=== PATIENT | female | born 1945 | race American Indian/Alaskan Native ===

== ENCOUNTER 2018-04-15 06:06 | Inpatient (IN) | payer OTHER, MEDICARE ==
[2018-04-15] MEDS ORDERED: Thrombin Topical 5,000 Int Units Spray Kit ONE (07:10)
[2018-04-15] MEDS ORDERED: Absorbable Gelatin Sponge Size 100 ONE (07:10)
--- NOTE | 2018-04-15 07:12 | CP.PCM.HP ---
History of Present Illness - History of Present Illness History of Present Illness: PCP:Dr Rivera Orthopdist: Dr Morgan Chief Complaint: Left Total knee replacement HPI: 72 years old female with hx of HTN, Anxiety GERD and right hip osteoarthritis, comes with Months of Intolerable pain to the left knee. She had been taking analgesics with now less response to the conservative management. . She has come for an elective left total knee Replacement.to be done by Dr Morgan today. She reefers Gas and on and off gas pains. No SOB, Chest Pain, Diarrhea, Dysuria. She was cleared for surgery by Dr Rivera. PMH; KWABENA; HTN; GERD; Anxiety disorder; Overactive Bladder; Prediabetes; Obesity ; Vitamin D Deficiency; Diverticulitis PSH: Arthroscopic surgery for right rotator cuff 2009; left Arthroscopic Knee surgery 2013 Colonoscopy; Tubal ligation; tonsillectomy; Right Total hip replacement SH: No illegal drug use; No Alcohol; No smoking ; live with family FH:Sister with breast cancer Mother with HTN and stroke Father with prostate cancer Allergies: NKDA Medicine: Reviewed Present on Admission - Present on Admission Any Indicators Present on Admission: No History of DVT/PE: No History of Uncontrolled Diabetes: No Urinary Catheter: No Decubitus Ulcer Present: No Review of Systems - Constitutional Constitutional: absent: Chills, Fever, Headache, Lethargy - EENT Eyes: Requires Corrective Lenses. absent: Itchy Eyes, Photophobia, Sees Flashes Ears: absent: Decreased Hearing, Ear Discharge, Ear Pain Nose/Mouth/Throat: Nasal Congestion. absent: Epistaxis, Nasal Discharge, Sinus Pain, Sinus Pressure - Cardiovascular Cardiovascular: Edema. absent: Chest Pain, Dyspnea - Respiratory Respiratory: absent: Cough, Dyspnea, Chest Congestion - Gastrointestinal Gastrointestinal: absent: Abdominal Pain, Constipation, Diarrhea, Nausea, Vomiting - Genitourinary Genitourinary: Urinary Frequency. absent: Dysuria, Flank Pain - Musculoskeletal Musculoskeletal: Arthralgias. absent: Back Pain, Deformity, Joint Swelling - Integumentary Integumentary: absent: Pruritus, Rash, Skin Ulcer, Sores, Striae - Neurological Neurological: absent: Confusion, Numbness, Focal Weakness, Weakness - Psychiatric Psychiatric: Anxiety. absent: Depression, Panic Attacks - Endocrine Endocrine: absent: Palpitations, Polydipsia, Polyphagia, Polyuria Past Patient History - Past Medical History & Family History Past Medical History?: Yes - Past Social History Smoking Status: Never Smoked Chewing Tobacco Use: No Cigar Use: No Drugs: Denies Home Situation {Lives}: With Family - CARDIAC Hx Hypertension: Yes - PULMONARY Hx Respiratory Disorders: Yes Hx Sleep Apnea: Yes - NEUROLOGICAL Hx Neurological Disorder: Yes Other/Comment: NUMBNESS.TINGLING - HEENT Hx HEENT Problems: No - RENAL Hx Chronic Kidney Disease: No - ENDOCRINE/METABOLIC Hx Endocrine Disorders: No - HEMATOLOGICAL/ONCOLOGICAL Hx Blood Disorders: No - INTEGUMENTARY Hx Dermatological Problems: No - MUSCULOSKELETAL/RHEUMATOLOGICAL Hx Arthritis: Yes - GASTROINTESTINAL Hx Gastrointestinal Disorders: Yes Hx Diverticulitis: Yes - GENITOURINARY/GYNECOLOGICAL Hx Genitourinary Disorders: No - PSYCHIATRIC Hx Psychophysiologic Disorder: No - SURGICAL HISTORY Hx Surgeries: Yes Hx Arthroscopy: Yes (LEFT KNEE 2009) Hx Orthopedic Surgery: (RIGHT SHOULDER 2012) Hx Tonsillectomy: Yes - ANESTHESIA Hx Anesthesia: Yes Hx Anesthesia Reactions: No Hx Malignant Hyperthermia: No Meds Allergies/Adverse Reactions: Allergies Allergy/AdvReac Type Severity Reaction Status Date / Time environmental Allergy CONGESTION Uncoded 04/15/18 07:25 Physical Exam - Constitutional Appears: No Acute Distress - Head Exam Head Exam: ATRAUMATIC, NORMAL INSPECTION, NORMOCEPHALIC - Eye Exam Eye Exam: EOMI, Normal appearance - ENT Exam ENT Exam: Mucous Membranes Moist, Normal Exam, Normal External Ear Exam - Neck Exam Neck exam: Positive for: Full Rom, Normal Inspection. Negative for: Lymphadenopathy, Tenderness - Respiratory Exam Respiratory Exam: Clear to Auscultation Bilateral. absent: Rales, Rhonchi, Wheezes - Cardiovascular Exam Cardiovascular Exam: REGULAR RHYTHM, RRR, +S1, +S2. absent: Gallop, JVD - GI/Abdominal Exam GI & Abdominal Exam: Normal Bowel Sounds, Soft. absent: Mass, Organomegaly, Tenderness - Rectal Exam Rectal Exam: Deferred - Extremities Exam Additional comments: left knee pain - Back Exam Back exam: NORMAL INSPECTION. absent: CVA tenderness (L), CVA tenderness (R) - Neurological Exam Neurological exam: Alert, CN II-XII Intact, Oriented x3, Reflexes Normal - Psychiatric Exam Psychiatric exam: Normal Affect, Normal Mood - Skin Skin Exam: Dry, Intact, Normal Color, Warm Results - Labs Result Diagrams: 04/15/18 06:45 Assessment & Plan - Assessment and Plan (Free Text) Assessment: #. Left Knee Osteoarthritis #. HTN #,GERD #. Sleep Apnea #. Anxiety Plan: 72 years old female with hx of HTN, Anxiety GERD and right hip osteoarthritis, comes with Months of Intolerable pain to the left knee. She had been taking analgesics with now less response to the conservative management. . She has come for an elective left total knee Replacement.to be done by Dr Morgan today. She reefers Gas and on and off gas pains. No SOB, Chest Pain, Diarrhea, Dysuria. She was cleared for surgery by Dr Rivera. #. Left Knee Osteoarthritis for elective Left TKR - Consult Dr Morgan - Orthopedic management - Pain management #. HTN - Labetalol 300mg Po DID to continue post surgery - HCTZ 12.5mg Po daily as of 04/16/18 #,GERD - Pepcid 20mg Po daily #. Sleep Apnea - CPAP #. Anxiety - Ativan 1mg Po daily #. DVT Prophylaxis with lovenox starting 04/16/18 #. Code Status: Full - Date & Time Date: 04/15/18 Time: 07:12
[2018-04-15] MEDS ORDERED: Propofol 10 mg/ml Inj (20 ML) ONE (07:19)
[2018-04-15] MEDS ORDERED: Lidocaine 4% (Laryng-O-Jet) Kit MM ONE (07:20)
[2018-04-15] MEDS ORDERED: Succinylcholine 200 mg/10 ml Inj IV ONE (07:20)
[2018-04-15] MEDS ORDERED: Lidocaine 1% 5ml Abboject IV ONE (07:20)
[2018-04-15] MEDS ORDERED: Midazolam 2 MG/2 ML VIAL ONE (07:20)
[2018-04-15] MEDS ORDERED: Sevoflurane - Inhalation Anesthetic Liq (250 ml) ONE (07:20)
[2018-04-15] MEDS ORDERED: Rocuronium 10 mg/ml (5 ml) ONE ×2 (07:21→08:17)
[2018-04-15 07:24] VITALS: BMI 34.5
[2018-04-15] MEDS ORDERED: Phenylephrine 10 mg/ml Inj ONE (07:26)
--- NOTE | 2018-04-15 07:44 | CP.PCM.CON ---
History of Present Illness - History of Present Illness History of Present Illness: Orthopedic consult Patient is a 72 y/o female with PMH of sleep apnea, HTN, anemia, GERD who presents with chronic left knee pain. The patient is scheduled for elective total knee replacement today. She notes that she has had left knee pain for many years which has progressively worsened over the last few months. She has tried and failed conservative management with PT and oral meds, as well as intra -articular injection of steroid and hyaluronic acid. The pain has severely hindered her activities of daily living, such as walking. She has had a left knee arthroscopy in the past. Her pain currently is dull and aching in quality and is associated with swelling. The pain worsens with walking and standing, but is somewhat alleviated with rest. She denies any radiation of pain, numbness or tingling. She denies CP/SOB/N/V/D/fever/GORDILLO/dysuria/melena. Review of Systems - Review of Systems All systems: reviewed and no additional remarkable complaints except Review of Systems: as per HPI Past Patient History - Past Medical History & Family History Past Medical History?: Yes Past Family History: Reviewed and not pertinent - Past Social History Smoking Status: Never Smoked Chewing Tobacco Use: No Alcohol: None Drugs: Denies - CARDIAC Hx Hypertension: Yes - PULMONARY Hx Respiratory Disorders: Yes Hx Sleep Apnea: Yes - NEUROLOGICAL Hx Neurological Disorder: Yes Other/Comment: NUMBNESS.TINGLING - HEENT Hx HEENT Problems: No - RENAL Hx Chronic Kidney Disease: No - ENDOCRINE/METABOLIC Hx Endocrine Disorders: No - HEMATOLOGICAL/ONCOLOGICAL Hx Blood Disorders: Yes Hx Anemia: Yes - INTEGUMENTARY Hx Dermatological Problems: No - MUSCULOSKELETAL/RHEUMATOLOGICAL Hx Arthritis: Yes - GASTROINTESTINAL Hx Gastrointestinal Disorders: Yes Hx Diverticulitis: Yes Hx Gastroesophageal Reflux: Yes - GENITOURINARY/GYNECOLOGICAL Hx Genitourinary Disorders: Yes Hx Incontinence: Yes - PSYCHIATRIC Hx Psychophysiologic Disorder: No - SURGICAL HISTORY Hx Surgeries: Yes Hx Arthroscopy: Yes (LEFT KNEE 2009) Hx Joint Replacement: Yes (Right Hip) Hx Orthopedic Surgery: (RIGHT SHOULDER 2012) Hx Tonsillectomy: Yes - ANESTHESIA Hx Anesthesia: Yes Hx Anesthesia Reactions: No Hx Malignant Hyperthermia: No Meds Allergies/Adverse Reactions: Allergies Allergy/AdvReac Type Severity Reaction Status Date / Time environmental Allergy CONGESTION Uncoded 04/15/18 07:25 Physical Exam - Constitutional Appears: Well, No Acute Distress - Eye Exam Eye Exam: EOMI, Normal appearance, PERRL - ENT Exam ENT Exam: Mucous Membranes Moist - Respiratory Exam Respiratory Exam: Clear to Auscultation Bilateral, NORMAL BREATHING PATTERN - Cardiovascular Exam Cardiovascular Exam: REGULAR RHYTHM - GI/Abdominal Exam GI & Abdominal Exam: Normal Bowel Sounds, Soft - Extremities Exam Additional comments: L knee: mild swelling, mild effusion, no lesions, + tenderness sensation intact SP/DP/TN motor intact EHL/FHL/TA/G pedal pulses intact comp soft NT R knee: no swelling, no effusion, no lesions, no tenderness sensation intact SP/DP/TN motor intact EHL/FHL/TA/G pedal pulses intact comp soft NT - Neurological Exam Neurological exam: Alert, Oriented x3 - Psychiatric Exam Psychiatric exam: Normal Affect, Normal Mood - Skin Skin Exam: Normal Color, Warm Results - Vital Signs Recent Vital Signs: Last Vital Signs Temp 98.1 F 04/15/18 07:26 Pulse 70 04/15/18 07:26 Resp 18 04/15/18 07:26 BP 165/84 H 04/15/18 07:26 Pulse Ox 95 04/15/18 07:26 Assessment & Plan (1) Osteoarthritis of left knee Assessment and Plan: -OR today for left total knee arthroplasty -Risks/Benefits of procedure were explained to the patient in detail. The patient expresses understanding and agrees to proceed with above procedure. -Above d/w Dr. Morgan in agreement Status: Acute - Date & Time Date: 04/15/18 Time: 07:30
[2018-04-15] MEDS ORDERED: Lactated Ringer's 1,000 ML IV ONE ×2 (07:50→11:55)
[2018-04-15] MEDS ORDERED: Lidocaine 2% Jelly (5 ml) TOP ONE (08:12)
[2018-04-15] MEDS ORDERED: Tranexamic Acid 1,000 MG in Sodium Chloride 0.9% 100 ML IVPB STA (08:19)
[2018-04-15] MEDS ORDERED: Lactobacillus Acidophilus 500 MU Cap PO ONE (09:01)
[2018-04-15 09:16] LABS: EOS # 0.2 K/uL (0.0-0.7); EOS % 4.5 % (0.0-4.0); HEMOGLOBIN 13.4 g/dL (12.0-16.0); LYMPH # 1.1 K/uL (1.0-4.3); LYMPH % 25.7 % (20.0-40.0); MEAN CELL VOLUME 82.9 fl (81.0-99.0); MEAN CORPUSCULAR HGB CONC 33.8 g/dL (33.0-37.0); MEAN PLATELET VOLUME 8.3 fl (7.2-11.7); MONO # 0.6 K/uL (0.0-0.8); MONO % 13.5 % (0.0-10.0); NEUT # 2.4 K/uL (1.8-7.0); NEUT % 55.3 % (50.0-75.0); NRBC % 0.2 % (0.0-0.0); RBC 4.79 Mil/uL (3.80-5.20); RED CELL DISTRIBUTION WIDTH 14.3 % (11.5-14.5); WHITE BLOOD COUNT 4.3 K/uL (4.8-10.8)
[2018-04-15] MEDS ORDERED: HYDROmorphone 0.5 mg/0.5 ml ISec IVP PRN (10:33)
[2018-04-15] MEDS ORDERED: Sodium Chloride 0.9% 1,000 ML IV SCH (10:45)
[2018-04-15] MEDS ORDERED: Bacitracin OINT 15GM TOP ONE (11:05)
[2018-04-15] MEDS ORDERED: Tranexamic Acid 1,000 MG in Sodium Chloride 0.9% 100 ML IVPB ONE (11:10)
--- NOTE | 2018-04-15 12:13 | PCM.ANESB3 ---
Femoral Nerve Block - Femoral Nerve Block Date of Procedure: 04/15/18 Anesthesiologist: Dr. Gerber Pre-Procedure Diagnosis: S/P left TKR Post-Procedure Diagnosis: S/P left TKR Procedure Performed: Femoral Nerve Block Left - Procedure Femoral Nerve Block: The procedure was explained to the patient that it is for the post-operative pain management. Consent was obtained after a thorough discussion with the patient regarding the benefits and possible complications of local anesthetic block of the femoral nerve at the inguinal crease area. The patient was brought to the operating room and standard monitors were applied. Time-out was held with the circulating nurse to confirm the correct surgery and the appropriate block. After the surgery while still under general anesthesia, patient was placed in supine position with fully extended lower extremities and the _left___ ____ groin exposed. The femoral artery was then carefully palpated. The ultrasound transducer was then applied to this area in the transverse plane and the femoral nerve was visualized lateral to the femoral artery and underneath the fascia iliaca. After thorough identification, the inguinal crease area was prepped with Betadine solution three times and 1 % Lidocaine was injected subcutaneously for topical anesthesia. At this point, a #22 gauge Stimuplex 2-inch needle was inserted immediately lateral to the femoral artery pulse at the inguinal crease and advanced perpendicularly. The needle was inserted to the ultrasound transducer in-plane towards the femoral nerve in a [id number] direction. Needle advancement was performed carefully under direct ultrasound visualization. Nerve stimulator was used and twitch of the quadriceps muscle was obtained at current of ____0.3_ MA. After negative aspiration, __5___cc of _0.25____% _bupivacaine with 1:200, 000 epinephrine_was injected and this was followed with ___35___ cc of ___0.25_ ___ % _bupivacaine with 1:200,000 epinephrine_. Under ultrasound guidance the local anesthetics were observed spreading below fascia iliaca and around the femoral nerve. The needle was removed intact and sterile dressing was applied. The patient had stable vital signs, was awaken from anesthesia and in no apparent distress. The patient tolerated the femoral nerve block well with stable vital signs and was transported to PACU.
[2018-04-15] MEDS ORDERED: Lactated Ringer's 1,000 ML IV SCH (12:15)
--- NOTE | 2018-04-15 12:15 | PCM.ANESB2 ---
Popliteal Nerve Block - Popliteal Nerve Block Date of Procedure: 04/15/18 Anesthesiologist: Dr. Gerber Pre-Procedure Diagnosis: S/P left TKR Post-Procedure Diagnosis: S/P left TKR Procedure Performed: Popliteal Nerve Block Left - Procedure Popliteal Nerve Block: This procedure was explained to the patient that it is for post-operative pain management. Consent was obtained after a thorough discussion with the patient regarding the benefits and possible complications of local anesthetic block of the sciatic nerve at the popliteal level. The patient was brought to the operating room and standard monitors are applied. Time-out was held with the circulating nurse to confirm the correct surgery and the appropriate block. After the surgery while still under general anesthesia, patient's operative leg was gently raised and supported and the groove in between the biceps femoris and vastus lateralis muscles was carefully palpated. The skin approximately 8cm above the popliteal crease was then marked. The ultrasound transducer was then applied to the posterior thigh approximately 8cm above the popliteal crease in the transverse plane and the sciatic nerve before its division was visualized lateral to the popliteal artery and in between the bicep femoris and semimembranosus/semitendinosus muscles. After identification, the lateral portion of the thigh was prepped with Betadine solution three times and Lidocaine 1% was injected subcutaneously for topical anesthesia. At this point, a # 21 gauge Stimuplex insulated 4 inch needle was inserted into pre-marked area and advanced in a perpendicular direction. The needle was inserted above the ultrasound transducer in-plane towards the sciatic nerve in a [id number] direction. Needle advancement was performed carefully under direct ultrasound visualization. Nerve stimulator was used and dorsiflexion of the _left_ foot was elicited at a current of ___0.3__ MA. After repeated negative aspiration, __5___cc of __0.25___ % bupivacaine with 1:200,000 epinephrine was injected and this was flowed with ___15___ cc of __0.25____% __ bupivacaine with 1:200,000 epinephrine. Under ultrasound guidance the local anesthetics were observed surrounding sciatic nerve . The needle was removed intact and sterile dressing was applied. The patient tolerated the popliteal nerve block well with stable vital signs and was subsequently awaken and transported to PACU.
--- NOTE | 2018-04-15 12:38 | PCM.SURG1 ---
Surgeon's Initial Post Op Note - Surgeon's Notes Surgeon: Eddie Carton Forming Machine Tender: DAVID Silverman/ROXANN Webster Type of Anesthesia: General Endo Anesthesia Administered By: DR Binh Lockhart Pre-Operative Diagnosis: dispalced/comminuted angulated distal radius fx (13 days s/p injury in pt with multiple comorbidities) Operative Findings: as above Post-Operative Diagnosis: displaced/comminjuted/angulated sistal radius fx Right wrist Operation Performed: Closed redcution/percutaneous pin fication displaced distal radius fx. applx external fixator. posaitioning of fluoro/ interpretation of video images Specimen/Specimens Removed: n/a Estimated Blood Loss: EBL {In ML}: 5 Blood Products Given: N/A Drains Used: No Drains Post-Op Condition: Good Date of Surgery/Procedure: 04/15/18 Time of Surgery/Procedure: 12:05 (time in room/anesthesia indcution time 1120)
--- NOTE | 2018-04-15 14:08 | RAD ---
PROCEDURE: Left knee HISTORY: s/p L TKA COMPARISON: None available. TECHNIQUE: Portable study in the PACU FINDINGS: Postoperative findings related to left TKA. Focal air in the soft tissues related to the procedure. IMPRESSION: Satisfactory postoperative status.
--- NOTE | 2018-04-15 14:41 | PCM.SURG1 ---
Surgeon's Initial Post Op Note - Surgeon's Notes Surgeon: Eddie Technical Buyer: DAVID Canchola/ 2nd assist- Raphael Batres PA-C Type of Anesthesia: General Endo Anesthesia Administered By: DR Gerber Pre-Operative Diagnosis: severe tricompartmental O/A L Knee Operative Findings: severe tgricompartmental O/A L knee. tricomparmental synovitis Post-Operative Diagnosis: as above. posterior capsular contracture Operation Performed: L TKR. anterior/posterior synovectomy. posterior capuslar release. computer navigation` Specimen/Specimens Removed: synovium/cartilage/bone Estimated Blood Loss: EBL {In ML}: 80 Blood Products Given: N/A Drains Used: No Drains Post-Op Condition: Good Date of Surgery/Procedure: 04/15/18 Time of Surgery/Procedure: 08:45 ( time in room 7:50/anaetshesia indcution time 750)
[2018-04-15] MEDS: Labetalol 5 mg/ml Inj 20ML IVP PRN ×4 (14:50→15:35)
[2018-04-15] MEDS: ceFAZolin 2 GM in Sodium Chloride 0.9% 100 ML IVPB SCH (16:19)
[2018-04-16] MEDS: ceFAZolin 2 GM in Sodium Chloride 0.9% 100 ML IVPB SCH (00:57)
[2018-04-16] MEDS: Oxycodone/Acetaminophen 5/325 mg Tab PO PRN ×7 (01:01→21:51)
[2018-04-16] MEDS ORDERED: Simethicone 80 mg Chewtab PO PRN (02:09)
[2018-04-16 06:21] LABS: HEMOGLOBIN 11.2 g/dL (12.0-16.0); MEAN CELL VOLUME 82.5 fl (81.0-99.0); MEAN CORPUSCULAR HEMOGLOBIN 28.1 pg (27.0-31.0); RBC 3.98 Mil/uL (3.80-5.20); RED CELL DISTRIBUTION WIDTH 14.3 % (11.5-14.5)
[2018-04-16 06:31] LABS: BLOOD UREA NITROGEN 9 mg/dl (7-17); CALCIUM 8.9 mg/dL (8.4-10.2); GFR AFRICAN-AMERICAN > 60; GFR NON-AFRICAN AMERICAN > 60
--- NOTE | 2018-04-16 08:10 | CP.PCM.PN ---
Subjective - Date & Time of Evaluation Date of Evaluation: 04/16/18 Time of Evaluation: 07:45 - Subjective Subjective: Patient seen and examined at bedside comfortable. Pain is well controlled this AM. Tolerating diet. Has not worked with PT as of yet. No acute events overnight. Objective - Vital Signs/Intake and Output Vital Signs (last 24 hours): Temp Pulse Resp BP Pulse Ox 98.3 F 90 18 177/77 H 95 04/16/18 07:40 04/16/18 07:40 04/16/18 07:40 04/16/18 07:40 04/16/18 07:40 - Medications Medications: Current Medications Acetaminophen (Tylenol 325mg Tab) 650 mg PO Q4 PRN PRN Reason: Fever 101 degrees fahrenheit Acetaminophen (Tylenol 325mg Tab) 975 mg PO Q6H PRN PRN Reason: pain moderate to severe Last Admin: 04/15/18 20:50 Dose: 975 mg Docusate Sodium (Colace) 100 mg PO BID [facility] Enoxaparin Sodium (Lovenox) 40 mg SC DAILY [facility] PRN Reason: Protocol Home Med (Cevimeline Hcl [Evoxac]) 30 mg PO BID [facility] Home Med (Solifenacin Succinate [Vesicare]) 5 mg PO DAILY [facility] Sodium Chloride (Sodium Chloride 0.9%) 1,000 mls @ 80 mls/hr IV .[id number] [facility] Stop: 04/16/18 10:34 Lactated Ringer's (Lactated Ringer's) 1,000 mls @ 100 mls/hr IV .Q10H [facility] Labetalol HCl (Trandate) 5 mg IVP Q15M PRN PRN Reason: Systolic Blood Pressure Last Admin: 04/15/18 15:35 Dose: 5 mg Labetalol HCl (Trandate) 300 mg PO BID [facility] Oxycodone/Acetaminophen (Percocet 5/325 Mg Tab) 1 tab PO Q4 PRN PRN Reason: Pain, moderate (4-7) Stop: 04/18/18 10:34 Last Admin: 04/16/18 05:10 Dose: 1 tab Oxycodone/Acetaminophen (Percocet 5/325 Mg Tab) 2 tab PO Q4 PRN PRN Reason: Pain, severe (8-10) Stop: 04/19/18 05:29 Simethicone (Mylicon Chew Tab) 80 mg PO TID PRN PRN Reason: Flatulence Valsartan (Diovan) 320 mg PO DAILY [facility] - Labs Labs: 04/16/18 06:10 04/16/18 06:10 - Extremities Exam Additional comments: L knee: knee immobilizer intact, dressings CDI, + tenderness 2nd to surgery sensation intact SP/DP/TN motor intact EHL/FHL/TA/G pedal pulses intact comp soft NT Assessment and Plan (1) Osteoarthritis of left knee Assessment & Plan: POD #1 s/p L TKA doing well -pain control -DVT ppx -PT/OT WBAT with walker -knee immobilizer to promote extension while sleeping at night, CPM as per order during day -discharge planning -above d/w Dr. Morgan in agreement Status: Acute
--- NOTE | 2018-04-16 08:33 | OP ---
PROCEDURE DATE: 04/15/2018 PREOPERATIVE DIAGNOSIS: Severe tricompartmental osteoarthritis in the left knee. POSTOPERATIVE DIAGNOSES: 1. Severe tricompartmental osteoarthritis of the left knee. 2. Tricompartmental synovitis. 3. Posterior capsular contracture. 4. Anterior and posterior synovitis. OPERATIVE PROCEDURE: 1. Left total knee replacement arthroplasty. 2. Anterior and posterior synovectomy. 3. Posterior capsular release. 4. Computer navigation. SURGEON Rodrick Morgan MD SANDER AND BUFFER: Andreia Talbot, certified registered nursing first aid trainer. SECOND ACCOUNTANT: Raphael Bullard PA-C. It should be noted that the PA and the certified registered nursing first aid trainer were essential to the operative procedure. ANESTHESIA: General and regional anesthesia, Dr. Gerber. COMPLICATIONS: No complications. DRAINS: No drains. OPERATIVE INDICATION: The patient is a 72-year-old woman well-known to my practice, who presents with severe pain and restricted range of motion of the left knee. The patient presents with marked discomfort, pain and restricted range of motion. The patient presents refractory to conservative approach consisting of anti-inflammatory medication, intra-articular injection and therapy. Pros, cons, risks and benefits of total knee replacement arthroplasty discussed. The possibility of mechanical failure, infection, thromboembolic disease, secondary or tertiary surgery was discussed. The patient understands the discomfort and wishes surgery to be accomplished. OPERATIVE PROCEDURE After having obtained informed consent in the above fashion, after having identified side, site and procedure and critical pause/time-out, after the satisfactory induction of the anesthetic, the patient identified as Jarred Jurado in the supine position with all bony prominences well padded. The left lower extremity was prepped and free draped in usual fashion for extremity surgery. Tourniquet had been applied but was not inflated. After exsanguinating the limb using a 6-inch Esmarch bandage, the tourniquet which had been applied was inflated to 350 mmHg. A straight midline approach was made to the knee approximately 6 inches in extent. The skin incision was carried down through the skin and subcutaneous tissue. Hemostasis controlled with electrocautery. Medial arthrotomy was accomplished. Patella was everted. The knee was flexed. Dissection was carried around posterior medially to the direct head of the semimembranosus tendon. A portion of the patellar ligament was elevated. The medial meniscus was excised. Anterior and posterior cruciate ligaments were excised. The tibia was dislocated anteriorly and initial osteotomy of the arthroplasty was accomplished on the tibial side. This having been accomplished, the retractors were placed, the Hohmann is placed and at this point time, the anterior tibial strut was placed on the bare area of the tibia and it is held in place with the strap and with the pins. At this point in time, the offset is determined at the posterior aspect of the anterior cruciate ligament. In this way, the computer navigation commences using accelerometer technology. This having been accomplished, the stylus was placed. The varus-valgus is set to 0 degrees after registration commences of the lateral malleolus and the medial malleolus. Lateral malleolus having been registered, medial malleolus having been registered, varus-valgus cut is set to 0 with 3.5 degrees posterior slope. The tibial osteotomy was accomplished at a point 2 mm below the very deficient medial side. Medial osteophytes were debrided. Great care was taken not to injure the medial collateral ligament. Attention was turned to the femur. Notch osteophytes, border osteophytes were debrided. The pin was placed above the intercondylar notch. The distal femoral guide is placed and again the accelerometer and the sensor were placed. The hip center was found. The distal cut is set to 0 degrees varus-valgus and with 1 degree of flexion to the femoral component. The 2.5 block is fixed in the lateral aspect of the femur along the epicondylar axis. Anterior and posterior osteotomies and chamfer cuts were accomplished. At this point in time, the lamina quitline counselor was placed and was found to be a marked posterior capsular contracture. There is found to be a marked posterior capsular contracture. The posterior capsule was released. This having been accomplished and the posterior capsule having been released, the flexion extension gap having been accomplished and balanced, the intercondylar notch splint was applied and intercondylar notch was reamed. The 2.5 femoral component was placed. At this point in time, the tibia was sized to a #2 tibial component, guidance to rotation of the lateral aspect of the tibial condyle, mid malleolar axis, medial third of the tibial tuberosity. This having been accomplished, the proximal tibia having been prepared because of the patient's girth, the stemmed tibial component was employed. The proximal tibia was prepared. Flexion extension gap was found to be excellent with a 17 mm polyethylene and overall alignment is excellent. Attention is turned to the femur. Femoral girth was found to be 28 mm. The patella girth was found to be 28 mm. Freehand patella osteotomy was accomplished using the oscillating saw and the cut was accomplished at the junction of the bone and the articular cartilage. At this point in time, the #2 patella component was placed. Reaming is accomplished and trial is accomplished with the #2 patellar component. Flexion/extension balance and patellar balance was found to be excellent. At this point in time, the wound was thoroughly irrigated using the Pulsavac. The femur was prepared, the tibia was prepared as well as the patella. At this point in time the 2+ femoral component was cemented as is the #2 tibial tray, 17 mm polyethylene was affixed at the #1 patella button. This having been accomplished, again flexion/extension balance found to be excellent. Patella balance found to be excellent. The tourniquet was deflated. Hemostasis controlled with Aquamantys. Closures in layers with #2 FiberWire, followed by #1 Vicryl, 0 Vicryl, 2-0 Vicryl and walt for skin. No Hemovac drain was employed because of the excellent hemostasis with the Aquamantys. It should be noted that tranexamic acid had been introduced at the time of the incision as well. Red Caldera compression dressing and knee immobilizers applied. Rodrick Morgan MD
[2018-04-16] MEDS ORDERED: CEVIMELINE HCL 30 MG PO SCH (09:00)
--- NOTE | 2018-04-16 10:01 | CP.PCM.PN ---
Subjective - Date & Time of Evaluation Date of Evaluation: 04/16/18 Time of Evaluation: 11:00 - Subjective Subjective: Patient seen and examined bedside. Complains of pain of left knee and headache BP elevated today , afebrile Denies any Chest pain or SOB Objective - Vital Signs/Intake and Output Vital Signs (last 24 hours): Temp Pulse Resp BP Pulse Ox 98.3 F 90 18 177/77 H 95 04/16/18 07:40 04/16/18 07:40 04/16/18 07:40 04/16/18 07:40 04/16/18 07:40 - Medications Medications: Current Medications Acetaminophen (Tylenol 325mg Tab) 650 mg PO Q4 PRN PRN Reason: Fever 101 degrees fahrenheit Acetaminophen (Tylenol 325mg Tab) 975 mg PO Q6H PRN PRN Reason: pain moderate to severe Last Admin: 04/15/18 20:50 Dose: 975 mg Docusate Sodium (Colace) 100 mg PO BID [facility] Last Admin: 04/16/18 08:47 Dose: 100 mg Enoxaparin Sodium (Lovenox) 40 mg SC DAILY [facility] PRN Reason: Protocol Home Med (Cevimeline Hcl [Evoxac]) 30 mg PO BID [facility] Home Med (Solifenacin Succinate [Vesicare]) 5 mg PO DAILY [facility] Sodium Chloride (Sodium Chloride 0.9%) 1,000 mls @ 80 mls/hr IV .[id number] [facility] Stop: 04/16/18 10:34 Lactated Ringer's (Lactated Ringer's) 1,000 mls @ 100 mls/hr IV .Q10H [facility] Labetalol HCl (Trandate) 5 mg IVP Q15M PRN PRN Reason: Systolic Blood Pressure Last Admin: 04/15/18 15:35 Dose: 5 mg Labetalol HCl (Trandate) 300 mg PO BID [facility] Last Admin: 04/16/18 08:51 Dose: 300 mg Oxycodone/Acetaminophen (Percocet 5/325 Mg Tab) 1 tab PO Q4 PRN PRN Reason: Pain, moderate (4-7) Stop: 04/18/18 10:34 Last Admin: 04/16/18 05:10 Dose: 1 tab Oxycodone/Acetaminophen (Percocet 5/325 Mg Tab) 2 tab PO Q4 PRN PRN Reason: Pain, severe (8-10) Stop: 04/19/18 05:29 Last Admin: 04/16/18 08:49 Dose: 2 tab Simethicone (Mylicon Chew Tab) 80 mg PO TID PRN PRN Reason: Flatulence Last Admin: 04/16/18 08:47 Dose: 80 mg Valsartan (Diovan) 320 mg PO DAILY [facility] Last Admin: 04/16/18 08:50 Dose: 320 mg - Labs Labs: 04/16/18 06:10 04/16/18 06:10 - Constitutional Appears: Non-toxic, No Acute Distress - Head Exam Head Exam: ATRAUMATIC, NORMAL INSPECTION, NORMOCEPHALIC - Eye Exam Eye Exam: EOMI, Normal appearance, PERRL Pupil Exam: NORMAL ACCOMODATION - ENT Exam ENT Exam: Mucous Membranes Moist, Normal Exam - Neck Exam Neck Exam: Full ROM, Normal Inspection - Respiratory Exam Respiratory Exam: Clear to Ausculation Bilateral, NORMAL BREATHING PATTERN. absent: Rales, Rhonchi, Wheezes - Cardiovascular Exam Cardiovascular Exam: REGULAR RHYTHM, RRR, +S1, +S2. absent: JVD - GI/Abdominal Exam GI & Abdominal Exam: Soft, Normal Bowel Sounds. absent: Distended, Guarding, Tenderness, Rebound - Rectal Exam Rectal Exam: Deferred - Extremities Exam Additional comments: left lower extremity with merrill bandage and dressing in place , warm to touch - Back Exam Back Exam: NORMAL INSPECTION - Neurological Exam Neurological Exam: Alert, Awake, CN II-XII Intact, Oriented x3 - Psychiatric Exam Psychiatric exam: Normal Affect, Normal Mood - Skin Skin Exam: Dry, Intact, Normal Color, Warm Assessment and Plan - Assessment and Plan (Free Text) Assessment: 72 years old female with hx of HTN, Anxiety GERD and right hip osteoarthritis, came with Months of Intolerable pain to the left knee. She had been taking analgesics with now less response to the conservative management.She came for an elective left total knee Replacement.today post op day 1 . Complains of pain to left knee and GORDILLO and BP not well controlled today 1. Left Knee Osteoarthritis s/o left TKR post op # 1 continue pain management Incentive spirometry started Lovenox for DVt prophylaxis Received Ancef x 3 doses prophylactically PT eval 2. HTN uncontrolled today resumed home meds labetalol ,Diovan Extra dose 10 mg hydralazine pO today Monitor closely 3.GERD Pepcid 20mg Po daily 4. Sleep Apnea on CPAP 5. Anxiety Ativan 1mg Po daily 6. Hypokalemia replace with KCl po 7. Vitamin D deficiency Replace with vitamin D PO 8. DVT Prophylaxis lovenox
[2018-04-16] MEDS: Enoxaparin 40 mg Syringe SC SCH (10:40)
[2018-04-16] MEDS ORDERED: Ergocalciferol 50,000 Intl Units Cap PO SCH (13:45)
[2018-04-17 06:22] LABS: HEMOGLOBIN 10.2 g/dL (12.0-16.0); MEAN CELL VOLUME 82.9 fl (81.0-99.0); MEAN CORPUSCULAR HEMOGLOBIN 28.2 pg (27.0-31.0); RBC 3.63 Mil/uL (3.80-5.20); RED CELL DISTRIBUTION WIDTH 14.1 % (11.5-14.5); WHITE BLOOD COUNT 10.5 K/uL (4.8-10.8)
[2018-04-17 06:46] LABS: BLOOD UREA NITROGEN 13 mg/dl (7-17); CALCIUM 8.8 mg/dL (8.4-10.2); GFR AFRICAN-AMERICAN > 60; GFR NON-AFRICAN AMERICAN > 60
[2018-04-17] MEDS: Enoxaparin 40 mg Syringe SC SCH (08:13)
--- NOTE | 2018-04-17 08:42 | CP.PCM.PN ---
Subjective - Date & Time of Evaluation Date of Evaluation: 04/17/18 Time of Evaluation: 07:45 - Subjective Subjective: Patient seen and examined at bedside. Pain better controlled this AM. Tolerating diet. Able to take a few steps with PT yesterday. No new complaints. Objective - Vital Signs/Intake and Output Vital Signs (last 24 hours): Temp Pulse Resp BP Pulse Ox 98.2 F 88 18 113/66 96 04/17/18 07:47 04/17/18 08:14 04/17/18 07:47 04/17/18 08:14 04/17/18 07:47 - Medications Medications: Current Medications Acetaminophen (Tylenol 325mg Tab) 650 mg PO Q4 PRN PRN Reason: Fever 101 degrees fahrenheit Acetaminophen (Tylenol 325mg Tab) 975 mg PO Q6H PRN PRN Reason: pain moderate to severe Last Admin: 04/15/18 20:50 Dose: 975 mg Amlodipine Besylate (Norvasc) 5 mg PO DAILY [facility] Last Admin: 04/17/18 08:14 Dose: 5 mg Docusate Sodium (Colace) 100 mg PO BID [facility] Last Admin: 04/17/18 08:13 Dose: 100 mg Enoxaparin Sodium (Lovenox) 40 mg SC DAILY [facility] PRN Reason: Protocol Last Admin: 04/17/18 08:13 Dose: 40 mg Ergocalciferol (Drisdol 50,000 Intl Units Cap) 1 cap PO Q7D [facility] Last Admin: 04/16/18 17:40 Dose: 1 cap Home Med (Cevimeline Hcl [Evoxac]) 30 mg PO BID [facility] Home Med (Solifenacin Succinate [Vesicare]) 5 mg PO DAILY [facility] Lactated Ringer's (Lactated Ringer's) 1,000 mls @ 100 mls/hr IV .Q10H [facility] Labetalol HCl (Trandate) 5 mg IVP Q15M PRN PRN Reason: Systolic Blood Pressure Last Admin: 04/15/18 15:35 Dose: 5 mg Labetalol HCl (Trandate) 300 mg PO BID [facility] Last Admin: 04/17/18 08:14 Dose: 300 mg Oxycodone/Acetaminophen (Percocet 5/325 Mg Tab) 1 tab PO Q4 PRN PRN Reason: Pain, moderate (4-7) Stop: 04/18/18 10:34 Last Admin: 04/16/18 13:29 Dose: 1 tab Oxycodone/Acetaminophen (Percocet 5/325 Mg Tab) 2 tab PO Q4 PRN PRN Reason: Pain, severe (8-10) Stop: 04/19/18 05:29 Last Admin: 04/16/18 21:51 Dose: 2 tab Simethicone (Mylicon Chew Tab) 80 mg PO TID PRN PRN Reason: Flatulence Last Admin: 04/16/18 08:47 Dose: 80 mg Valsartan (Diovan) 320 mg PO DAILY [facility] Last Admin: 04/17/18 08:15 Dose: 320 mg - Labs Labs: 04/17/18 05:35 04/17/18 05:35 - Extremities Exam Additional comments: L knee: knee immobilizer intact, dressings CDI, + tenderness 2nd to surgery sensation intact SP/DP/TN motor intact EHL/FHL/TA/G pedal pulses intact comp soft NT Assessment and Plan (1) Osteoarthritis of left knee Assessment & Plan: POD #2 s/p L TKA doing well -dressings changed this AM -DVT ppx -PT/OT WBAT with walker -knee immobilizer and CPM as per order -orthopedically stable for discharge today -above d/w Dr. Morgan in agreement Status: Acute
--- NOTE | 2018-04-17 09:47 | CP.PCM.PN ---
Subjective - Date & Time of Evaluation Date of Evaluation: 04/17/18 Time of Evaluation: 09:30 - Subjective Subjective: Patient seen and examined bedside. Pain is controlled . Hemodynamically stable, afebrile Feeling constipated and bloated.Tolerating po intake Participating with PT BP 113/66 HR 88 O2Sat 96 % in RA Hgb 10 WBC 10 K Objective - Vital Signs/Intake and Output Vital Signs (last 24 hours): Temp Pulse Resp BP Pulse Ox 98.2 F 88 18 113/66 96 04/17/18 07:47 04/17/18 08:14 04/17/18 07:47 04/17/18 08:14 04/17/18 07:47 - Medications Medications: Current Medications Acetaminophen (Tylenol 325mg Tab) 650 mg PO Q4 PRN PRN Reason: Fever 101 degrees fahrenheit Acetaminophen (Tylenol 325mg Tab) 975 mg PO Q6H PRN PRN Reason: pain moderate to severe Last Admin: 04/15/18 20:50 Dose: 975 mg Amlodipine Besylate (Norvasc) 5 mg PO DAILY [facility] Last Admin: 04/17/18 08:14 Dose: 5 mg Docusate Sodium (Colace) 100 mg PO BID [facility] Last Admin: 04/17/18 08:13 Dose: 100 mg Enoxaparin Sodium (Lovenox) 40 mg SC DAILY [facility] PRN Reason: Protocol Last Admin: 04/17/18 08:13 Dose: 40 mg Ergocalciferol (Drisdol 50,000 Intl Units Cap) 1 cap PO Q7D [facility] Last Admin: 04/16/18 17:40 Dose: 1 cap Home Med (Cevimeline Hcl [Evoxac]) 30 mg PO BID [facility] Home Med (Solifenacin Succinate [Vesicare]) 5 mg PO DAILY [facility] Labetalol HCl (Trandate) 5 mg IVP Q15M PRN PRN Reason: Systolic Blood Pressure Last Admin: 04/15/18 15:35 Dose: 5 mg Labetalol HCl (Trandate) 300 mg PO BID [facility] Last Admin: 04/17/18 08:14 Dose: 300 mg Oxycodone/Acetaminophen (Percocet 5/325 Mg Tab) 1 tab PO Q4 PRN PRN Reason: Pain, moderate (4-7) Stop: 04/18/18 10:34 Last Admin: 04/16/18 13:29 Dose: 1 tab Oxycodone/Acetaminophen (Percocet 5/325 Mg Tab) 2 tab PO Q4 PRN PRN Reason: Pain, severe (8-10) Stop: 04/19/18 05:29 Last Admin: 04/16/18 21:51 Dose: 2 tab Simethicone (Mylicon Chew Tab) 80 mg PO TID PRN PRN Reason: Flatulence Last Admin: 04/16/18 08:47 Dose: 80 mg Valsartan (Diovan) 320 mg PO DAILY [facility] Last Admin: 04/17/18 08:15 Dose: 320 mg - Labs Labs: 04/17/18 05:35 04/17/18 05:35 - Constitutional Appears: Non-toxic, No Acute Distress, Chronically Ill - Head Exam Head Exam: ATRAUMATIC, NORMOCEPHALIC - Eye Exam Eye Exam: EOMI, Normal appearance, PERRL Pupil Exam: NORMAL ACCOMODATION - ENT Exam ENT Exam: Mucous Membranes Moist, Normal Exam - Neck Exam Neck Exam: Full ROM, Normal Inspection - Respiratory Exam Respiratory Exam: Clear to Ausculation Bilateral, NORMAL BREATHING PATTERN. absent: Rales, Rhonchi, Wheezes - Cardiovascular Exam Cardiovascular Exam: REGULAR RHYTHM, RRR, +S1, +S2. absent: JVD - GI/Abdominal Exam GI & Abdominal Exam: Soft, Normal Bowel Sounds. absent: Distended, Guarding, Tenderness, Rebound - Rectal Exam Rectal Exam: Deferred - Extremities Exam Extremities Exam: Normal Inspection. absent: Calf Tenderness Additional comments: left lower extremity merrill bandage and dressing - Back Exam Back Exam: NORMAL INSPECTION - Neurological Exam Neurological Exam: Alert, Awake, CN II-XII Intact, Oriented x3 - Psychiatric Exam Psychiatric exam: Flat Affect - Skin Skin Exam: Dry, Normal Color, Warm Assessment and Plan - Assessment and Plan (Free Text) Assessment: 72 years old female with hx of HTN, Anxiety GERD and right hip osteoarthritis, came with Months of Intolerable pain to the left knee. She had been taking analgesics with now less response to the conservative management.She came for an elective left total knee Replacement.Today post op day 2, pain is controlled. 1. Left Knee Osteoarthritis s/o left TKR post op # 2 continue pain management Incentive spirometry on Lovenox for DVt prophylaxis Received Ancef x 3 doses prophylactically PT eval appreciated . Patient willl benefit from TOYA Continue WBAT to LLE with walker and CPM machine as per ortho recommendations. 2. HTN better controlled resumed home meds labetalol ,Diovan started Norvasc 5 mg po QD yesterday Monitor closely 3. Hyponatremia Most likely volume depleted Start NS @ 100 cc /hr Repeat BMP in AM 4. Acute blood loss anemia Hgb dropped from 13 -- 10 Monitor 5. Constipation on Colace and lactulose 6.GERD Pepcid 20mg Po daily 7. Sleep Apnea on CPAP 8. Anxiety Ativan 1mg Po daily 9. Hypokalemia replace with KCl po 10. Vitamin D deficiency Replace with vitamin D PO once a week 11. DVT Prophylaxis lovenox
[2018-04-17] MEDS ORDERED: Potassium Chloride 20 mEq/15 ml LIQ UD PO ONE (09:58)
[2018-04-17] MEDS: Sodium Chloride 0.9% 1,000 ML IV SCH ×2 (11:45→20:00)
[2018-04-17] MEDS: Oxycodone/Acetaminophen 5/325 mg Tab PO PRN ×2 (12:14→19:52)
[2018-04-18] MEDS: Oxycodone/Acetaminophen 5/325 mg Tab PO PRN ×2 (00:02→13:29)
[2018-04-18 06:36] LABS: BLOOD UREA NITROGEN 22 mg/dl (7-17); CALCIUM 8.4 mg/dL (8.4-10.2); GFR AFRICAN-AMERICAN > 60; GFR NON-AFRICAN AMERICAN > 60
[2018-04-18 06:46] LABS: MEAN CELL VOLUME 81.9 fl (81.0-99.0); MEAN CORPUSCULAR HEMOGLOBIN 28.2 pg (27.0-31.0); MEAN CORPUSCULAR HGB CONC 34.4 g/dL (33.0-37.0); RBC 3.06 Mil/uL (3.80-5.20); WHITE BLOOD COUNT 8.2 K/uL (4.8-10.8)
[2018-04-18 07:14] LABS: HEMOGLOBIN 8.6 g/dL (12.0-16.0)
[2018-04-18] MEDS: Enoxaparin 40 mg Syringe SC SCH (08:16)
--- NOTE | 2018-04-18 10:41 | CP.PCM.PN ---
Subjective - Date & Time of Evaluation Date of Evaluation: 04/18/18 Time of Evaluation: 10:35 - Subjective Subjective: S- pt oob and comfortable minimal post op discomfort( pulse =84- NO TACHYCARDIA) Objective - Vital Signs/Intake and Output Vital Signs (last 24 hours): Temp Pulse Resp BP Pulse Ox 98.6 F 83 20 110/66 97 04/18/18 08:28 04/18/18 08:28 04/18/18 08:28 04/18/18 08:28 04/18/18 08:28 - Medications Medications: Current Medications Acetaminophen (Tylenol 325mg Tab) 650 mg PO Q4 PRN PRN Reason: Fever 101 degrees fahrenheit Acetaminophen (Tylenol 325mg Tab) 975 mg PO Q6H PRN PRN Reason: pain moderate to severe Last Admin: 04/17/18 11:48 Dose: 975 mg Amlodipine Besylate (Norvasc) 5 mg PO DAILY [facility] Last Admin: 04/18/18 08:18 Dose: 5 mg Docusate Sodium (Colace) 100 mg PO BID [facility] Last Admin: 04/18/18 08:17 Dose: 100 mg Enoxaparin Sodium (Lovenox) 40 mg SC DAILY [facility] PRN Reason: Protocol Last Admin: 04/18/18 08:16 Dose: 40 mg Ergocalciferol (Drisdol 50,000 Intl Units Cap) 1 cap PO Q7D [facility] Last Admin: 04/16/18 17:40 Dose: 1 cap Ferrous Sulfate (Feosol) 325 mg PO BID [facility] Last Admin: 04/18/18 08:22 Dose: 325 mg Home Med (Cevimeline Hcl [Evoxac]) 30 mg PO BID [facility] Home Med (Solifenacin Succinate [Vesicare]) 5 mg PO DAILY [facility] Labetalol HCl (Trandate) 300 mg PO BID [facility] Last Admin: 04/18/18 08:18 Dose: 300 mg Lactulose (Enulose) 20 gm PO DAILY PRN PRN Reason: Constipation Last Admin: 04/18/18 08:17 Dose: 20 gm Oxycodone/Acetaminophen (Percocet 5/325 Mg Tab) 2 tab PO Q4 PRN PRN Reason: Pain, severe (8-10) Stop: 04/19/18 05:29 Last Admin: 04/18/18 00:02 Dose: 2 tab Simethicone (Mylicon Chew Tab) 80 mg PO TID PRN PRN Reason: Flatulence Last Admin: 04/16/18 08:47 Dose: 80 mg Sodium Chloride (Sodium Chloride Tab) 1 gm PO DAILY [facility] Stop: 04/19/18 09:01 Last Admin: 04/18/18 09:20 Dose: 1 gm Valsartan (Diovan) 320 mg PO DAILY [facility] Last Admin: 04/18/18 08:16 Dose: 320 mg - Labs Labs: 04/18/18 05:30 04/18/18 05:30 - Additional Findings Additional findings: MUSCULOSKEKELTAL stance/gait- defrred wound dry/drssingh dry and intact orthopedicall stable Hgg =8.6 pt not sumptomatic and being maintained on Fe So4 Assessment and Plan - Assessment and Plan (Free Text) Assessment: A- s/p TKR, stable post op course P- Full weigth bearing/pghysion orthopedcially stable for trqansfer to TCU No necessity for transfusion at this point pt clibnically stable; no tac hycardia, not symptomatic
--- NOTE | 2018-04-18 10:41 | CP.PCM.PN ---
Subjective - Date & Time of Evaluation Date of Evaluation: 04/18/18 Time of Evaluation: 09:30 - Subjective Subjective: Patient seen and examined sitting at side of bed working with PT. Pain is well controlled. No new complaints. Discharge held due to rehab placement delay and hyponatremia. Objective - Vital Signs/Intake and Output Vital Signs (last 24 hours): Temp Pulse Resp BP Pulse Ox 98.6 F 83 20 110/66 97 04/18/18 08:28 04/18/18 08:28 04/18/18 08:28 04/18/18 08:28 04/18/18 08:28 - Medications Medications: Current Medications Acetaminophen (Tylenol 325mg Tab) 650 mg PO Q4 PRN PRN Reason: Fever 101 degrees fahrenheit Acetaminophen (Tylenol 325mg Tab) 975 mg PO Q6H PRN PRN Reason: pain moderate to severe Last Admin: 04/17/18 11:48 Dose: 975 mg Amlodipine Besylate (Norvasc) 5 mg PO DAILY [facility] Last Admin: 04/18/18 08:18 Dose: 5 mg Docusate Sodium (Colace) 100 mg PO BID [facility] Last Admin: 04/18/18 08:17 Dose: 100 mg Enoxaparin Sodium (Lovenox) 40 mg SC DAILY [facility] PRN Reason: Protocol Last Admin: 04/18/18 08:16 Dose: 40 mg Ergocalciferol (Drisdol 50,000 Intl Units Cap) 1 cap PO Q7D [facility] Last Admin: 04/16/18 17:40 Dose: 1 cap Ferrous Sulfate (Feosol) 325 mg PO BID [facility] Last Admin: 04/18/18 08:22 Dose: 325 mg Home Med (Cevimeline Hcl [Evoxac]) 30 mg PO BID [facility] Home Med (Solifenacin Succinate [Vesicare]) 5 mg PO DAILY [facility] Labetalol HCl (Trandate) 300 mg PO BID [facility] Last Admin: 04/18/18 08:18 Dose: 300 mg Lactulose (Enulose) 20 gm PO DAILY PRN PRN Reason: Constipation Last Admin: 04/18/18 08:17 Dose: 20 gm Oxycodone/Acetaminophen (Percocet 5/325 Mg Tab) 2 tab PO Q4 PRN PRN Reason: Pain, severe (8-10) Stop: 04/19/18 05:29 Last Admin: 04/18/18 00:02 Dose: 2 tab Simethicone (Mylicon Chew Tab) 80 mg PO TID PRN PRN Reason: Flatulence Last Admin: 04/16/18 08:47 Dose: 80 mg Sodium Chloride (Sodium Chloride Tab) 1 gm PO DAILY [facility] Stop: 04/19/18 09:01 Last Admin: 04/18/18 09:20 Dose: 1 gm Valsartan (Diovan) 320 mg PO DAILY [facility] Last Admin: 04/18/18 08:16 Dose: 320 mg - Labs Labs: 04/18/18 05:30 04/18/18 05:30 - Extremities Exam Additional comments: L knee: dressings CDI, mild tenderness 2nd to surgery sensation intact SP/DP/TN motor intact EHL/FHL/TA/G pedal pulses intact comp soft NT Assessment and Plan (1) Osteoarthritis of left knee Assessment & Plan: POD #3 s/p L TKA doing well -decreased HGB this AM, recommend oral iron -DVT ppx -PT/OT WBAT with walker -knee immobilizer and CPM as per order -orthopedically stable for discharge to rehab today -f/u in Dr. Morgan's office in 7-10 days -above d/w Dr. Morgan in agreement Status: Acute
[2018-04-18] MEDS: Sodium Chloride 0.9% 1,000 ML IV SCH (12:27)
--- NOTE | 2018-04-18 15:18 | CP.PCM.DIS ---
Provider - Provider Date of Admission: 04/15/18 08:04 Attending physician: Austyn Wisdom Primary care physician: Rodrick Morgan III, MD Consults: Ortho: Dr Morgan Time Spent in preparation of Discharge (in minutes): 35 Diagnosis - Discharge Diagnosis (1) Osteoarthritis of left knee Status: Chronic (2) S/P TKR (total knee replacement) Status: Acute (3) Uncontrolled hypertension Status: Acute (4) Acute blood loss as cause of postoperative anemia Status: Acute (5) Postoperative anemia Status: Acute Hospital Course - Lab Results Lab Results: Most Recent Lab Values WBC 8.2 K/uL (4.8-10.8) 04/18/18 05:30 RBC 3.06 Mil/uL (3.80-5.20) L 04/18/18 05:30 Hgb 8.6 g/dL (12.0-16.0) L 04/18/18 05:30 Hct 25.0 % (34.0-47.0) L 04/18/18 05:30 MCV 81.9 fl (81.0-99.0) 04/18/18 05:30 MCH 28.2 pg (27.0-31.0) 04/18/18 05:30 MCHC 34.4 g/dL (33.0-37.0) 04/18/18 05:30 RDW 14.0 % (11.5-14.5) 04/18/18 05:30 Plt Count 218 K/uL (130-400) 04/18/18 05:30 MPV 8.3 fl (7.2-11.7) 04/15/18 06:45 Neut % (Auto) 55.3 % (50.0-75.0) 04/15/18 06:45 Lymph % (Auto) 25.7 % (20.0-40.0) 04/15/18 06:45 [place] % (Auto) 13.5 % (0.0-10.0) H 04/15/18 06:45 Eos % (Auto) 4.5 % (0.0-4.0) H 04/15/18 06:45 Baso % (Auto) 1.0 % (0.0-2.0) 04/15/18 06:45 Neut # (Auto) 2.4 K/uL (1.8-7.0) 04/15/18 06:45 Lymph # (Auto) 1.1 K/uL (1.0-4.3) 04/15/18 06:45 [place] # (Auto) 0.6 K/uL (0.0-0.8) 04/15/18 06:45 Eos # (Auto) 0.2 K/uL (0.0-0.7) 04/15/18 06:45 Baso # (Auto) 0.0 K/uL (0.0-0.2) 04/15/18 06:45 Sodium 127 mmol/l (132-148) L 04/18/18 05:30 Potassium 3.8 MMOL/L (3.6-5.0) 04/18/18 05:30 Chloride 90 mmol/L (98-107) L 04/18/18 05:30 Carbon Dioxide 26 mmol/L (22-30) 04/18/18 05:30 Anion Gap 15 (10-20) 04/18/18 05:30 BUN 22 mg/dl (7-17) H 04/18/18 05:30 Creatinine 0.9 mg/dl (0.7-1.2) 04/18/18 05:30 Est GFR ( Amer) > 60 04/18/18 05:30 Est GFR (Non-Af Amer) > 60 04/18/18 05:30 Random Glucose 111 mg/dL (65-105) H 04/18/18 05:30 Calcium 8.4 mg/dL (8.4-10.2) 04/18/18 05:30 25-OH Vitamin D Total < 12.8 NG/ML (30.0-100.0) L 04/16/18 06:10 Blood Type O POSITIVE 04/15/18 06:45 Antibody Screen Negative 04/15/18 06:45 BBK History Checked Patient has bt 04/15/18 06:45 - Hospital Course Hospital Course: 72 years old female with hx of HTN, Anxiety GERD and right hip osteoarthritis, came with hx for months of Intolerable pain to the left knee. She had been taking analgesics with now less response to the conservative management. She came for an elective left total knee Replacement. Her pain is controlled with Percocte. She participated with PT . Ortho cleared her for discharge to [facility]. 1. Primary Left Knee Osteoarthritis s/p left TKR continue pain management Incentive spirometry on Lovenox for DVt prophylaxis Received Ancef x 3 doses prophylactically PT eval appreciated . Patient willl benefit from [facility] Continue WBAT to LLE with walker and CPM machine as per ortho recommendations. 2. HTN better controlled resumed home meds labetalol ,Diovan cont Norvasc Monitor closely 3. Hyponatremia Most likely volume depleted Started NS @ 100 cc /hr and pt received 1 tab of NaCl 4. Acute blood loss anemia, post op Pt is hemodynamically stable, no transfusion Hgb 8.4 start Ferrous Sulfate 5. Constipation on Colace and lactulose 6.GERD Pepcid 20mg Po daily 7. Sleep Apnea on CPAP 8. Anxiety Ativan 1mg Po daily 9. Hypokalemia replace with KCl po 10. Vitamin D deficiency Replace with vitamin D PO once a week 11. DVT Prophylaxis lovenox Discharge Exam - Head Exam Head Exam: ATRAUMATIC, NORMAL INSPECTION, NORMOCEPHALIC - Eye Exam Eye Exam: EOMI, Normal appearance Pupil Exam: NORMAL ACCOMODATION - ENT Exam ENT Exam: Mucous Membranes Moist, Normal External Ear Exam - Neck Exam Neck exam: Full Rom - Respiratory Exam Respiratory Exam: NORMAL BREATHING PATTERN. absent: Respiratory Distress - Cardiovascular Exam Cardiovascular Exam: REGULAR RHYTHM, +S1, +S2 - GI/Abdominal Exam GI & Abdominal Exam: Normal Bowel Sounds, Soft. absent: Tenderness - Extremities Exam Extremities exam: normal capillary refill, pedal pulses present Additional comments: no calf tenderness left knee with dressing - Back Exam Back exam: FULL ROM. absent: CVA tenderness (L), CVA tenderness (R) - Neurological Exam Neurological exam: Alert, CN II-XII Intact, Oriented x3, Reflexes Normal - Psychiatric Exam Psychiatric exam: Normal Affect, Normal Mood - Skin Skin Exam: Dry, Normal Color, Warm Discharge Plan - Follow Up Plan Condition: GOOD Disposition: TRANSF TO SNF Instructions: Osteoarthritis (DC), Knee Pain (DC) Additional Instructions: d/c pt to [facility] appt with Dr Morgan in 1 wk Referrals: Rodrick Morgan III, MD [Primary Care Provider] -
[2018-04-18 15:35] LABS: BLOOD UREA NITROGEN 18 mg/dl (7-17); GFR AFRICAN-AMERICAN > 60; GFR NON-AFRICAN AMERICAN > 60
[2018-04-18 16:13] LABS: CALCIUM 8.6 mg/dL (8.4-10.2)
[2018-04-18 23:27] VITALS: BP 116/65; PULSE 84; RESP 20; TEMP 98.2; O2SAT 97
== END 2018-04-18 22:50 | DRG 470 ==
LOC: MERGE 06:06 → H.OPSURG 06:06 → H.MEDSURG1 08:04
PROVIDERS: ADMIT Internal Medicine; ATTEND Internal Medicine
PROC: 8E0YXBZ Computer Assisted Procedure of Lower Extremity (ICD-10-PCS; 2018-04-15)
PROC: 3E0T3BZ Introduction of Anesthetic Agent into Peripheral Nerves and Plexi, Percutaneous Approach (ICD-10-PCS; 2018-04-15)
PROC: 3E0T3BZ Introduction of Anesthetic Agent into Peripheral Nerves and Plexi, Percutaneous Approach (ICD-10-PCS; 2018-04-15)
PROC: 0SRD0J9 Replacement of Left Knee Joint with Synthetic Substitute, Cemented, Open Approach (ICD-10-PCS; principal; 2018-04-15 07:45)
PROC: 0SND0ZZ Release Left Knee Joint, Open Approach (ICD-10-PCS; 2018-04-15 07:45)
PROC: 0SBD0ZZ Excision of Left Knee Joint, Open Approach (ICD-10-PCS; 2018-04-15 07:45)
DX: M17.12 Unilateral primary osteoarthritis, left knee (principal); D62 Acute posthemorrhagic anemia; E87.1 Hypo-osmolality and hyponatremia; N32.81 Overactive bladder; G47.33 Obstructive sleep apnea (adult) (pediatric); E66.9 Obesity, unspecified; R73.03 Prediabetes; K21.9 Gastro-esophageal reflux disease without esophagitis; I10 Essential (primary) hypertension; F41.9 Anxiety disorder, unspecified; E55.9 Vitamin D deficiency, unspecified; Z96.641 Presence of right artificial hip joint; M65.9 Synovitis and tenosynovitis, unspecified; E87.6 Hypokalemia; M24.562 Contracture, left knee; K59.00 Constipation, unspecified